=== PATIENT | female | born 1980 | race Caucasian/White ===

== ENCOUNTER 2022-11-28 18:46 | Emergency (ER) | payer BC ==
[~2022-11-28] VITALS: Ht 170.1 cm; Wt 111.0 kg
[~2022-11-28 18:46] MED LIST: CALC300T4 PO; IBUP-30 PO; METR500T PO; MULT-35 PO; NAPR-243 PO; NFBIOT1000 PO; NITR-65 PO
[2022-11-28] MEDS ORDERED: RT-ALBUTEROL HFA 8.5 GM INHALER IH STA (19:48)
--- NOTE | 2022-11-28 19:55 | ED General ---
General Chief Complaint: Respiratory Problems Stated Complaint: SOA Nursing Triage Note: PT AMB TO [facility] 3 WITH COMPLAINT OF SOA, DRY COUGH. STATES AT WORK, SHE BECAME SOA WHEN WALKING UP 3 STAIRS. Source of Information: Patient Exam Limitations: No Limitations History of Present Illness Date Seen by Provider: Nov 28, 2022 Time Seen by Provider: 19:36 Initial Comments This 42 year old woman presents to the ER by private vehicle with intermittent stabbing pain in the chest radiating through to her back with inspiration. She feels SOA, especially with exertion. Symptoms started 4 days ago with congestion. Dry cough set in yesterday. She has chills without fever. She has nausea and heaves with coughing episodes. Her head feels heavy, and she feels weak and tired. Several people have been ill in her work place. She has been taking NiQuil and Alkaseltzer. Allergies and Home Medications Allergies Coded Allergies: Penicillins (Unverified Allergy, Unknown, 12/27/09) Uncoded Allergies: [id number] (SULFA (SULFONAMIDE ANTIBIOTICS)) (Allergy, Unknown, 12/27/09) Patient Home Medication List Home Medication List Reviewed: Yes Benzonatate (Tessalon Perles) 100 Mg Capsule, 200 MG PO TID PRN for COUGH Prescribed by: YUE KWAN on 11/28/222106 Biotin (Biotin) 1,000 Mcg Tablet, 1,000 MCG PO DAILY, (Reported) Entered as Reported by: KENTON BOURGEOIS on 11/29/15 1145 Calcium Carbonate (Tums) 300 Mg Tab.chew, 300 MG PO TID PRN for INDIGESTION, (Reported) Entered as Reported by: KENTON BOURGEOIS on 11/29/15 1145 Ibuprofen (Advil) 200 Mg Tablet, 600 MG PO Q8H PRN for HEADACHE, (Reported) Entered as Reported by: KENTON BOURGEOIS on 11/29/15 1144 Multivitamin (Daily Multiple Vitamin) 1 Each Tablet, 1 TAB PO DAILY, (Reported) Entered as Reported by: KENTON BOURGEOIS on 11/29/15 1145 Nitrofurantoin Monohyd/M-Cryst (Macrobid 100 mg Capsule) 100 Mg Capsule, 1 TAB PO BID Prescribed by: ADRIANA BUNN on 11/29/15 1203 Review of Systems Review of Systems Constitutional: see HPI EENTM: see HPI Respiratory: see HPI Cardiovascular: no symptoms reported Gastrointestinal: see HPI Genitourinary: no symptoms reported : No LMP: Nov 18, 2022 Musculoskeletal: no symptoms reported Skin: no symptoms reported Psychiatric/Neurological: See HPI Hematologic/Lymphatic: No Symptoms Reported Immunological/Allergic: no symptoms reported Past Dzshkqi-Rfgvwd-Tgkzhy Hx Patient Social History Tobacco Use?: No Use of E-Cig and/or Vaping dev: No Substance use?: No Alcohol Use?: No Pt feels they are or have been: No Immunizations Up To Date Tetanus Booster (TDap): More than 5yrs Seasonal Allergies Seasonal Allergies: No Past Medical History Surgeries: Yes (Nasal surgery) Appendectomy, Tubal Ligation Respiratory: No Cardiac: No Neurological: No : No Reproductive Disorders: No Genitourinary: No Gastrointestinal: No Musculoskeletal: No Endocrine: No HEENT: No Cancer: No Depression Family Medical History Cervical cancer maternal grandmother, Onset:Unknown Diabetes mellitus 19 MOTHER FH: multiple myeloma maternal grandfather, Onset:Unknown Physical Exam Vital Signs Vital Signs - First Documented 11/28/22 18:51 Temp 37.8 Pulse 101 Resp 22 B/P (MAP) 144/88 (106) Pulse Ox 96 O2 Delivery Room Air Capillary Refill : Less Than 3 Seconds Height, Weight, BMI Height: 5'7.00" Weight: 193lbs. 0.0oz. 87.134140qm; 38.00 BMI Method:Stated General Appearance: No Apparent Distress, WD/WN, Obese HEENT: PERRL/EOMI, TMs Normal, Normal ENT Inspection, Pharynx Normal Neck: Normal Inspection; No JVD Respiratory: No Accessory Muscle Use, No Respiratory Distress; No Crackles; Wheezing (tight wheezed throughout) Cardiovascular: Regular Rate, Rhythm, No Edema, No Murmur Gastrointestinal: Non Tender, Soft Extremity: Normal Inspection, No Pedal Edema Neurologic/Psychiatric: Alert, Oriented x3, No Motor/Sensory Deficits, Normal Mood/Affect Skin: Normal Color, Warm/Dry Progress/Results/Core Measures Suspected Sepsis SIRS Temperature: Pulse: 101 Respiratory Rate: 22 Blood Pressure 144 /88 Mean: 106 Results/Orders Lab Results Laboratory Tests Test 11/28/22 19:13 Range/Units Influenza Type A (RT-PCR) Not Detected Not Detecte Influenza Type B (RT-PCR) Not Detected Not Detecte SARS-CoV-2 RNA (RT-PCR) Not Detected Not Detecte My Orders Orders - YUE VALDES MD Albuterol Inhaler (Albuterol) (11/28/22 19:48) Chest Pa/Lat (2 View) (11/28/22 19:49) Benzonatate Capsule (Tessalon Perles) (11/28/22 20:57) Vital Signs/I&O 11/28/22 11/28/22 11/28/22 18:51 19:11 21:13 Temp 37.8 37.8 Pulse 101 91 Resp 22 16 B/P (MAP) 144/88 (106) 155/82 Pulse Ox 96 97 O2 Delivery Room Air Room Air Room Air Capillary Refill : Less Than 3 Seconds Blood Pressure Mean: 106 Progress Note : Progress Note Viral swabs for flu and COVID were negative. 2 view chest x-ray was unremarkable. She was treated with an albuterol inhaler with marked improvement in symptoms. Repeat exam demonstrated near resolution of wheezes. See discharge instructions for further discussion. Diagnostic Imaging Diagonstic Imaging: Xray Plain Films/CT/US/NM/MRI: chest Comments NAME: CHERRI HRARISON MED REC#: [id number] PT STATUS: REG ER : 1980 PHYSICIAN: YUE VALDES MD ADMIT DATE: 11/28/22/ER Signed Date of Exam:11/28/22 CHEST PA/LAT (2 VIEW) INDICATION: Dry cough, shortness of air FINDINGS: The lungs are clear. No failure, effusion or pneumothorax. IMPRESSION: Negative Dictated by: Dictated on workstation # [id number] Dict: 11/28/222005 Trans: 11/28/222029 [facility] [id number] Interpreted by: DARLEEN KEY Electronically signed by: DARLEEN KEY 11/28/222029 Departure Impression Primary Impression: Acute bronchitis Qualified Codes: J20.9 - Acute bronchitis, unspecified Disposition: 01 HOME, SELF-CARE Condition: Improved Departure-Patient Inst. Decision time for Depature: 21:03 Referrals: ELIANA MOREAU MD (PCP/Family) Primary Care Physician Patient Instructions: Bronchitis, Adult ED, How to Use Your Metered Dose Inhaler (Adults) Add. Discharge Instructions: You likely have a viral illness causing acute bronchitis. This causes spasming and narrowing of the airways. This can be treated with your albuterol inhaler. You may use up to 4 puffs in a 4-hour period of time. If you find yourself needing more than that, please return to care for further evaluation. For fever, headache, aches, and pains, you may use ibuprofen up to 600 mg every 6 hours as needed and/or Tylenol (acetaminophen) up to 1000 mg every 6 hours as needed. You may use Tessalon Perles as prescribed or an uycm-vpr-aetjaxk cough suppress ant to help reduce cough. You should be improving gradually over the next several days. If you have worsening symptoms despite following these instructions, return to care for further evaluation. Eat a well-balanced diet and drink plenty of clear liquids. All discharge instructions reviewed with patient and/or family. Voiced understanding. Scripts Benzonatate (TESSALON PERLES) 100 Mg Capsule 200 MG PO TID PRN for COUGH, #20 CAP Prov: YUE VALDES MD 11/28/22 Work/School Note: Work Release Form Date Seen in the Emergency Department: Nov 28, 2022 Return to Work: Nov 29, 2022 Restrictions: No Restrictions Other Restrictions Listed Below: Mask if coughing. Restrictions: Please note flu and COVID tests were negative. Copy Copies To 1: ELIANA MOREAU MD, JOSHUA T MD Nov 28, 2022 19:55
--- NOTE | 2022-11-28 20:09 | Diagnostic Imaging Report ---
INDICATION: Dry cough, shortness of air FINDINGS: The lungs are clear. No failure, effusion or pneumothorax. IMPRESSION: Negative Dictated by: Dictated on workstation # [id number]
[2022-11-28] MEDS ORDERED: BENZONATATE 100 MG (TESSALON) CAPSULE PO STA (20:57)
[2022-11-28] MEDS ORDERED: BENZ100C18 PO (21:07)
[2022-11-28 21:13] VITALS: BP 155/82
== END 2022-11-28 21:13 | disposition home or self-care (01) ==
LOC: EDUNIT# 18:46 → ER 18:47
DX: J20.9 Acute bronchitis, unspecified (principal); Z20.822 Contact with and (suspected) exposure to COVID-19
CPT/HCPCS: 71046; 87636